=== PATIENT | male | born 1990 | race African-American/Black ===

== ENCOUNTER 2016-12-16 21:37 | Emergency (ER) | payer OTHER ==
[~2016-12-16] VITALS: Ht 193 cm; Wt 95.3 kg
[2016-12-16 21:47] VITALS: BP 152/76
--- NOTE | 2016-12-16 22:03 | NUR ---
PATIENT LEFT WITHOUT BEING SEEN BY DR. Peñaloza. NO FURTHER CARE PROVIDED FOR PATIENT.
== END 2016-12-16 22:03 | disposition left against medical advice (07) ==
LOC: MED 21:37
DX: R09.89 Other specified symptoms and signs involving the circulatory and respiratory systems (principal); Z53.21 Procedure and treatment not carried out due to patient leaving prior to being seen by health care provider

== ENCOUNTER 2019-06-06 12:34 | Emergency (ER) | payer OTHER ==
[~2019-06-06] VITALS: Ht 190.5 cm; Wt 109.3 kg
[2019-06-06 12:53] VITALS: BP 123/80
[2019-06-06] MEDS ORDERED: GUAI-646 PO (12:58)
--- NOTE | 2019-06-06 12:59 | NUR ---
PT TO LOBBY WITH FAMILY. PT WEARING MASK.
--- NOTE | 2019-06-06 14:29 | NUR ---
PT AMBULATED TO BED 3
--- NOTE | 2019-06-06 14:30 | NUR ---
BIB . AAO X4 C/O CHEST CONGESTION, PRODUCTIVE COUGH WITH YELLOW SPUTUM X 1 WEEK. SPUTUM BLOOD TINGED X 2 DAYS. PAIN WITH COUGHING X YESTERDAY, "WORSE AT NIGHT." SEEN AT URGENT CARE 06/02/19 GIVEN RX: MUCINEX, TAKING MUCINEX WITH SOME RELIEF. BREATHING EVEN AND UNLABORED. LUNG SOUNDS CTAB. O2 SAT 98% RA, FULL CLEAR SPEECH. CLEAR EQUAL SADIE LUNGS UPON AUSCULTATION. ER TO EVALUATE PT.
--- NOTE | 2019-06-06 14:55 | NUR ---
Mandi ko in ED - 06/06/19 at 1535 by MEDREMY ANNITA MARIO AT BEDSIDE FOR PT EVALUATION
--- NOTE | 2019-06-06 14:59 | NUR ---
ANNITA MARIO AT BEDSIDE FOR PT RE EVALUATION
[2019-06-06] MEDS ORDERED: DEXAMETHASONE 10 MG/ML VIAL IM ONE ×2 (15:00→15:05)
[2019-06-06 15:30] VITALS: BP 126/86
--- NOTE | 2019-06-06 15:30 | NUR ---
Patient discharged with v/s stable. Written and verbal after care instructions given and explained. Patient alert, oriented and verbalized understanding of instructions. Ambulatory with steady gait. All questions addressed prior to discharge. ID band removed. Patient advised to follow up with PMD. Rx of ALBUTEROL, PREDNISONE, TESSALON PERLES given. Patient educated on indication of medication including possible reaction and side effects. Opportunity to ask questions provided and answered.
== END 2019-06-06 15:30 | disposition home or self-care (01) ==
LOC: MED 12:34
DX: J40 Bronchitis, not specified as acute or chronic (principal); Z79.899 Other long term (current) drug therapy
CPT/HCPCS: 71046; 96372; 99283; J1100

== ENCOUNTER 2019-12-02 10:39 | Emergency (ER) | payer OTHER ==
[~2019-12-02] VITALS: Ht 193 cm; Wt 108.4 kg
[~2019-12-02 10:39] MED LIST: GUAI-646 PO
[2019-12-02 10:50] VITALS: BP 155/82
--- NOTE | 2019-12-02 10:50 | NUR ---
PT TAKEN TO ER BED 01
--- NOTE | 2019-12-02 11:28 | NUR ---
FULL CLEAR SPEECH, NO RESP DISTRESS, OR PAIN STATED AT THIS TIME. AWAITS MD HERMOSILLO
[2019-12-02] MEDS ORDERED: CLINDAMYCIN 600 MG/4 ML VIAL IM ONE (12:45)
--- NOTE | 2019-12-02 12:52 | NUR ---
ERMD AT BEDSIDE EVALUATING PATIENT.
[2019-12-02 13:25] VITALS: BP 130/81
--- NOTE | 2019-12-02 13:25 | NUR ---
Patient discharged with v/s stable. Written and verbal after care instructions given and explained. Patient alert, oriented and verbalized understanding of instructions. Ambulatory with steady gait. All questions addressed prior to discharge. ID band removed. Patient advised to follow up with PMD. Rx of CLINDAMYCIN; SUDAFED; OXYMETAZOLINE given. Patient educated on indication of medication including possible reaction and side effects. Opportunity to ask questions provided and answered.
== END 2019-12-02 13:25 | disposition home or self-care (01) ==
LOC: MED 10:39
DX: S02.32XA Fracture of orbital floor, left side, initial encounter for closed fracture (principal); S02.832A Fracture of medial orbital wall, left side, initial encounter for closed fracture; I10 Essential (primary) hypertension; J32.9 Chronic sinusitis, unspecified; R58 Hemorrhage, not elsewhere classified; J33.8 Other polyp of sinus; Z79.899 Other long term (current) drug therapy; X58.XXXA Exposure to other specified factors, initial encounter; Y93.89 Activity, other specified; Y92.89 Other specified places as the place of occurrence of the external cause; Y99.8 Other external cause status
CPT/HCPCS: 70486; 96372; 99284; J3490; 99283